=== PATIENT | male | born 1955 | race Caucasian/White ===

== ENCOUNTER → 2018-11-06 13:12 | Outpatient (BNVA) | payer MEDICARE, SELFPAY | PROVIDERS: PCP Internal Medicine; Referring Provider Internal Medicine; Visit Provider Surgery | DX: K40.90 Unilateral inguinal hernia, without obstruction or gangrene, not specified as recurrent (principal) | CPT/HCPCS: 99203 ==

== ENCOUNTER 2018-12-12 06:17 | Day surgery (SDC) | payer OTHER, SELFPAY ==
[2018-12-12] VITALS (7 sets, daily range): BP systolic 111–150; BP diastolic 68–90; PULSE 48–75; RESP 11–16; TEMP 35.8–36.6; O2SAT 98–99
[2018-12-12] MEDS: Lactated Ringers 1,000 ML 30 ML IV (07:03)
[2018-12-12] MEDS: CLINDAMYCIN 900 MG/50 ML BAG 50 MG IVPB (07:37)
--- NOTE | 2018-12-12 09:15 | W.PM.OP ---
Date of service: 12/12/18 Time of Service: 09:15 Operative Note DATE OF PROCEDURE: 12/12/18 PRE-OP DIAGNOSIS: right inguinal hernia POST-OP DIAGNOSIS: other (right incarcerated direct inguinal hernia) PROCEDURE: Open repair of right incarcerated direct inguinal hernia with mesh SURGEON: Christo Goodwin III ASSISTING SURGEON: Risa Lindsay ANESTHESIA: GETA ESTIMATED BLOOD LOSS: 10 PATHOLOGY: none sent COMPLICATIONS: None Patient was transported to: PACU Patient's condition: stable Indications: pain right groin Findings: incarcerated right direct hernia Procedure Description: Patient was seen preoperatively and consent obtained all risks benefits alternatives were discussed the patient in detail. Patient was brought to the operating room and placed in the operating table supine fashion. Patient underwent general anesthesia and endotracheal intubation. A thorough timeout was done with the entire OR staff present. Patient underwent a tap block and ilioinguinal block with anesthesia prior to the surgery starting. Patient had the area prepped and draped in a sterile fashion and Ioban dressing applied. Patient had local anesthesia infiltrated the area adequate anesthesia was achieved a approximately 4 cm incision was made with sharp dissection to the skin down to the subcutaneous tissue patient had meticulous dissection down to the level of the external oblique with Bovie cautery used for hemostasis. At the level of the external oblique a 15 blade was used to incise the fibers of the external oblique along its parallel direction to the inguinal ligament with Metzenbaum scissors and careful dissection to avoid the ilioinguinal nerve a incision was carried from the point of entry to the external ring which was opened. This point the ilioinguinal nerve was identified and isolated the patient had a peanut used to isolate the spermatic cord and its contents from the canal and a Denilson drain was placed around. At this point the hernia was dissected off and there was found a direct component that was incarcerated underneath the cord itself the sac of the direct hernia was dissected out and reduced and the spermatic cord was investigated and dissected out to look for a indirect hernia which was not found. At this point a Marlex large mesh plug was placed in the defect and this was secured to the underside of the pubic tubercle with an interrupted PDS suture. The keyholed Marlex mesh was then applied on top this was circumferentially sutured with PDS suture at the pubic tubercle and circumferentially around with the keyhole incorporating the spermatic cord and its contents the area was copiously irrigated and a closure of the external oblique was then done with a running Vicryl suture the subcutaneous tissue above this was closed with interrupted 2-0 Vicryl sutures and a running Monocryl suture used to close the skin with Dermabond at the skin level. Patient tolerated procedure well was transferred to the PACU and then home upon full recovery from anesthesia patient's was notified of intraoperative findings and procedures. A thorough debridement was done of the entire or staff present.
--- NOTE | 2018-12-12 09:21 | W.PM.DSUDISC ---
Discharge Plan Disposition Patient Disposition: HOME Condition: Stable Discharge Details Reason For Visit: Repair of inguinal hernia Attending Provider: Christo Goodwin III Primary Care Provider: Richard Rosales Home Meds and New Rx's Prescriptions: Continued ibuprofen 800 MG tablet 800 mg PO Q8H PRN RF: 0 calcium carbonate [Caltrate 600] 600 MG tablet 600 mg PO DAILY RF: 0 flaxseed oil 1 cap DAILY RF: 0 glucosamine 1 cap DAILY RF: 0 Discharge Instructions Referrals: Christo Goodwin III, [OSTEOPATHIC DOCTOR] - Activity:: Activity as Tolerated Diet:: As Tolerated DS: Diagnosis Discharge Diagnosis (1) Inguinal hernia of right side with obstruction and without gangrene: Status: Chronic
[2018-12-12] MEDS: Ketorolac 30 MG/ML VIAL IVP (10:12)
[2018-12-12] MEDS: Normal Saline Flush 10 ML SYR IV (10:12)
--- NOTE | 2018-12-12 11:07 | W.PM.DSUDISC ---
Discharge Plan Disposition Patient Disposition: HOME Condition: Stable Discharge Details Reason For Visit: Repair of inguinal hernia Attending Provider: Christo Goodwin III Primary Care Provider: Richard Rosales Home Meds and New Rx's Prescriptions: New acetaminophen 650 mg tablet extended release 650 mg PO Q8H PRN (Reason: fever or pain) Qty: 14 RF: 0 oxycodone 5 mg tablet 5 mg PO Q6H PRN (Reason: pain) Qty: 20 RF: 0 Continued ibuprofen 800 MG tablet 800 mg PO Q8H PRN RF: 0 calcium carbonate [Caltrate 600] 600 MG tablet 600 mg PO DAILY RF: 0 flaxseed oil 1 cap DAILY RF: 0 glucosamine 1 cap DAILY RF: 0 Discharge Instructions Instructions: Inguinal Hernia (GEN) Stand Alone Forms: DSU Post op Instructions, Mickey Urrutia (DSU) Referrals: Christo Goodwin III, DO [OSTEOPATHIC DOCTOR] - Activity:: Activity as Tolerated Diet:: As Tolerated Discharge Orders Discharge Orders: Discharge Order (Routine); Ordered 12/12/18 Ordered By: Christo Goodwin III DS: Diagnosis Discharge Diagnosis (1) Inguinal hernia of right side with obstruction and without gangrene: Start date: 12/12/18 Start time: 11:07 Status: Chronic
== END 2018-12-12 11:36 | disposition home or self-care (01) ==
PROVIDERS: PCP Internal Medicine; Visit Provider Surgery
PROC: (CPT 49505; principal; 2018-12-12 07:30)
DX: K40.30 Unilateral inguinal hernia, with obstruction, without gangrene, not specified as recurrent (principal); K21.9 Gastro-esophageal reflux disease without esophagitis
CPT/HCPCS: 49505; 76942; C1781; J0131; J1100; J1885; J2001; J2250; J2405; J3010

== ENCOUNTER → 2018-12-19 13:49 | Outpatient (BNVA) | payer MEDICARE, SELFPAY | PROVIDERS: PCP Internal Medicine; Referring Provider Internal Medicine; Visit Provider Surgery | DX: Z48.89 Encounter for other specified surgical aftercare (principal); K40.90 Unilateral inguinal hernia, without obstruction or gangrene, not specified as recurrent ==

== ENCOUNTER 2019-12-04 09:28 | Outpatient (REF) | payer OTHER, SELFPAY ==
[2019-12-04 19:30] LABS: Abs Immature Grans 0.01 k/cumm (0.0-0.09); Absolute Basophil Count 0.01 k/cumm (0.0-0.2); Absolute Eosinophil Count 0.15 k/cumm (0.0-0.7); Absolute Lymphocyte Count 1.41 k/cumm (1.2-3.4); Absolute Monocyte Count 0.54 k/cumm (0.11-0.7); Absolute Neutrophil Count 4.36 k/cumm (1.2-6.7); Basophils % 0.2; Eosinophils % 2.3; HCT 44.5 % (40.0-50.0); HGB 15.2 g/dL (13.5-17.5); Immature Grans % 0.2 %; Lymphocytes % 21.8; Mean Corp. HGB Concentration 34.2 g/dL (32.0-36.0); Mean Corpuscular Hemoglobin 35.4 pg (27.0-33.0); Mean Corpuscular Volume 103.7 fL (80-95); Mean Platelet Volume 10.4 fL (8.0-11.0); Monocytes % 8.3; Neutrophils % 67.2; Platelet Count 214 x1000/uL (130-400); RBC 4.29 m/cumm (4.50-6.00); RBC Distribution Width 11.5 % (11.8-14.1); White Blood Cell Count 6.48 k/cumm (4.4-10.8)
[2019-12-04 19:51] LABS: ALT 31 U/L (16-63); AST 18 U/L (15-37); Albumin 3.9 g/dL (3.4-5.0); Alkaline Phosphatase 112 U/L (46-116); Anion Gap 10.5 mmol/L (3-11); BUN 14 mg/dL (7-18); Bilirubin, Total 0.4 mg/dL (0.2-1.0); CO2 25.5 mmol/L (21.0-32.0); CREATININE 0.99 mg/dL (0.70-1.30); Calcium 8.7 mg/dL (8.5-10.1); Calculated LDL 121 mg/dL; Chloride 106 mmol/L (98-107); Cholesterol 193 mg/dL (<200); Glucose 115 mg/dL (74-106); HDL Cholesterol 52 mg/dL (40-60); Potassium 4.2 mmol/L (3.5-5.1); Sodium 142 mmol/L (136-145); Total Protein 6.7 g/dL (6.4-8.2); Triglyceride 101 mg/dL (<150)
== END 2019-12-04 09:48 ==
LOC: NCHCN 09:28
PROVIDERS: PCP Internal Medicine; Visit Provider Physician Assistant
DX: R73.9 Hyperglycemia, unspecified (principal); K21.9 Gastro-esophageal reflux disease without esophagitis; D75.89 Other specified diseases of blood and blood-forming organs
CPT/HCPCS: 80053; 80061; 85025

== ENCOUNTER 2019-12-26 10:03 | Outpatient (CLI) | payer OTHER, SELFPAY ==
--- NOTE | 2019-12-26 | DI.RAD_ITS ---
EXAM: XR SHOULDER LT COMPLETE 2+V INDICATION: Pain left shoulder. COMPARISON: XR SHOULDER MIN 2V LT from 12/04/2019 from [facility]. TECHNIQUE: 2D digital imaging was performed. FINDINGS: The glenohumeral joint is well maintained. There is mild spurring at the glenoid. Spurring is seen at the tip of the acromion and greater and lesser tuberosities. Humeral head appears normally positione d. Old left rib fractures are seen. IMPRESSION: Stable mild to moderate degenerative changes.
== END 2019-12-26 10:23 ==
PROVIDERS: PCP Internal Medicine; Referring Provider Physician Assistant; Visit Provider Student in an Organized Health Care Education/Training Program
DX: M75.102 Unspecified rotator cuff tear or rupture of left shoulder, not specified as traumatic; M75.52 Bursitis of left shoulder
CPT/HCPCS: 99204; 99215; 73030

== ENCOUNTER 2023-04-21 10:58 | Outpatient (REF) | payer MEDICARE, SELFPAY ==
[2023-04-21 18:56] LABS: HCT 47.9 % (40.0-50.0); HGB 16.8 g/dL (13.5-17.5); MCH 37.3 pg (27.0-33.0); MCHC 35.1 % (32.0-36.0); MPV 10.9 fL (8.0-11.0); Platelet Count 173 10^3/uL (130-400); RBC 4.51 10^6/uL (4.36-5.78); RDW-SD 47.5 fL; WBC 4.97 10^3/uL (4.4-10.8)
[2023-04-21 19:09] LABS: MCV 106 fL (80-95)
[2023-04-21 19:14] LABS: ALT 41 U/L (16-63); AST 30 U/L (15-37); Albumin 4.2 g/dL (3.4-5.0); Alkaline Phosphatase 117 U/L (46-116); Anion Gap 8.2 mmol/L (3-11); BUN 11 mg/dL (7-18); Bilirubin, Total 0.6 mg/dL (0.2-1.0); CO2 24.8 mmol/L (21.0-32.0); Calcium 9.1 mg/dL (8.5-10.1); Chloride 107 mmol/L (98-107); Estimated GFR 81.98 (mL/min/1.73m2); Glucose 152 mg/dL (74-106); Potassium 4.3 mmol/L (3.5-5.1); Sodium 140 mmol/L (136-145); Total Protein 7.7 g/dL (6.4-8.2)
[2023-04-21 19:17] LABS: Hemoglobin A1C 5.3 % (<5.7)
== END 2023-04-21 10:59 | disposition home or self-care (01) ==
LOC: NCHCN 10:58
PROVIDERS: PCP Internal Medicine; Visit Provider Physician Assistant
DX: D75.89 Other specified diseases of blood and blood-forming organs (principal); K21.9 Gastro-esophageal reflux disease without esophagitis; F10.10 Alcohol abuse, uncomplicated; E66.9 Obesity, unspecified; R73.09 Other abnormal glucose
CPT/HCPCS: 80053; 85027; 83036

== ENCOUNTER 2024-05-11 09:24 | Outpatient (REF) | payer MEDICARE, SELFPAY ==
[2024-05-11 19:23] LABS: ALT 35 U/L (16-63); AST 26 U/L (15-37); Alkaline Phosphatase 108 U/L (46-116); Anion Gap 6.1 mmol/L (3-11); BUN 11 mg/dL (7-18); Bilirubin, Total 0.5 mg/dL (0.2-1.0); CO2 27.9 mmol/L (21.0-32.0); CREATININE 1.1 mg/dL (0.70-1.30); Calculated LDL 113 mg/dL (<100); Chloride 103 mmol/L (98-107); Cholesterol 194 mg/dL (<200); Estimated GFR 72.22 (mL/min/1.73m2); Glucose 127 mg/dL (74-106); HDL Cholesterol 55 mg/dL (40-60); Potassium 4.2 mmol/L (3.5-5.1); Sodium 137 mmol/L (136-145); Total Protein 7.4 g/dL (6.4-8.2); Triglyceride 130 mg/dL (<150)
[2024-05-14 11:07] LABS: Hepatitis C Ab w Rflx HCV PCR Negative (Negative)
== END 2024-05-11 09:25 | disposition home or self-care (01) ==
LOC: NCHCN 09:24
PROVIDERS: PCP Internal Medicine; Visit Provider Physician Assistant
DX: Z13.6 Encounter for screening for cardiovascular disorders (principal); Z12.5 Encounter for screening for malignant neoplasm of prostate; Z11.59 Encounter for screening for other viral diseases
CPT/HCPCS: 80053; 80061; 84153; 86803

== ENCOUNTER 2025-05-10 12:24 | Outpatient (REF) | payer MEDICARE, SELFPAY ==
[2025-05-10 19:42] LABS: Abs Immature Grans 0.03 10^3/uL (0.0-0.06); Absolute Basophil Count 0.04 10^3/uL (0.0-0.2); Absolute Eosinophil Count 0.12 10^3/uL (0.0-0.7); Absolute Lymphocyte Count 1.64 10^3/uL (1.2-3.4); Absolute Neutrophil Count 4.09 10^3/uL (1.2-6.7); Basophils % 0.6 %; Eosinophils % 1.8 %; HCT 41.1 % (40.0-50.0); HGB 14.1 g/dL (13.5-17.5); Immature Grans % 0.5 %; Lymphocytes % 24.8 %; MCH 34.8 pg (27.0-33.0); MCHC 34.3 % (32.0-36.0); MCV 102 fL (80-95); MPV 9.9 fL (8.0-11.0); Monocytes % 10.6 %; Neutrophils % 61.7 %; Platelet Count 233 10^3/uL (130-400); RBC 4.05 10^6/uL (4.36-5.78); RDW 11.9 % (11.8-14.1); RDW-SD 43.8 fL; WBC 6.62 10^3/uL (4.4-10.8)
[2025-05-10 20:00] LABS: ALT 40 U/L (16-63); AST 27 U/L (15-37); Albumin 3.6 g/dL (3.4-5.0); Alkaline Phosphatase 92 U/L (46-116); Anion Gap 7.1 mmol/L (3-11); BUN 9 mg/dL (7-18); Bilirubin, Total 0.4 mg/dL (0.2-1.0); CO2 29.9 mmol/L (21.0-32.0); CREATININE 1.1 mg/dL (0.70-1.30); Calcium 8.7 mg/dL (8.5-10.1); Chloride 104 mmol/L (98-107); Estimated GFR 71.77 (mL/min/1.73m2); Glucose 114 mg/dL (74-106); Potassium 3.9 mmol/L (3.5-5.1); Sodium 141 mmol/L (136-145); Total Protein 6.8 g/dL (6.4-8.2)
== END 2025-05-10 12:25 | disposition home or self-care (01) ==
LOC: NCHCN 12:24
PROVIDERS: PCP Internal Medicine; Visit Provider Physician Assistant
DX: R19.7 Diarrhea, unspecified (principal)
CPT/HCPCS: 80053; 85025

== ENCOUNTER → 2025-06-12 11:22 | Outpatient (BNVA) | payer MEDICARE, SELFPAY | PROVIDERS: PCP Internal Medicine; Referring Provider Internal Medicine; Visit Provider Physical Therapy Assistant | DX: Z12.11 Encounter for screening for malignant neoplasm of colon (principal) | CPT/HCPCS: S0285 ==

== ENCOUNTER 2025-06-20 07:40 | Day surgery (SDC) | payer MEDICARE, SELFPAY ==
[2025-06-20 08:05] VITALS: BP 145/92; PULSE 71; RESP 16; TEMP 36; O2SAT 99
[2025-06-20] MEDS: Lactated Ringers 1,000 ML 80 ML IV (08:20)
--- NOTE | 2025-06-20 08:26 | ANES.PREOP_ITS ---
General Info Date of Service Date Performed: 06/20/25 Height: 5 ft 9 in Weight: 92 kg Body Mass Index (BMI): 29.9 Surgical Procedure: Operation Date: 06/20/25 09:35 Proposed Procedure Side Surgeon p Colonoscopy Jerri Degroot MD Actual Procedure Side Surgeon p Colonoscopy Jerri Degroot MD Pre-Op Diagnosis Post-Op Diagnosis screening colonoscopy Meds Allergies and Home Medications Allergies Allergy/AdvReac Type Severity Reaction Status Date / Time Penicillins Allergy rash Verified 06/20/25 08:03 Home Medication ?Medication ?Instructions ?Recorded calcium carbonate (Caltrate 600) 600 mg PO DAILY 03/10 ibuprofen 800 mg tablet 800 mg PO Q8H PRN 03/10/15 acetaminophen 650 mg 650 mg PO Q8H PRN fever or p ain 12/12/18 tablet,extended release #14 tabs bisacodyl 5 mg tablet,delayed 5 mg PO ONCE #4 tabs release (Dulcolax (bisacodyl)) polyethylene glycol 3350 17 17 g PO ONCE #238 grams gram/dose oral powder multivitamin 1 tab PO DAILY 06/19/25 Current Visit Medications: Current Medications Generic Name Dose Route Start Last Admin Trade Name Freq PRN Reason Stop Dose Admin Ringer's Solution 1,000 mls @ 80 mls/hr 06/20/25 06:00 06/20/25 08:20 IV 06/20/25 23:59 80 mls/hr INFUSION ANA Administration IV Miscellaneous Supplies 1 each 06/20/25 06:00 Iv Access IV 06/20/25 23:59 DIRECTED ANA Sodium Biphosphate/Sodium Phosphate 133 ml 06/20/25 06:00 Na Phosphate Enema-Adult 133 Ml Btl DC 06/20/25 23:59 DIRECTED PRN Sodium Chloride 0 ml 06/20/25 06:00 Normal Saline Flush 10 Ml Syr IV 06/20/25 23:59 PRN PRN Sodium Chloride 0 ml 06/20/25 06:00 Normal Saline 10 Ml Vial IJ 06/20/25 23:59 DIRECTED PRN Sterile Water 0 ml 06/20/25 06:00 Water,Injection,Sterile 10 Ml Vial IJ 06/20/25 23:59 DIRECTED PRN PFSH Active Problems Active Problems: Problem Status Onset Code Bursitis of left shoulder Acute M75.52 Biceps tendonitis Acute M75.20 Acromioclavicular joint separation, type 1 Acute S43.109A Left rotator cuff tear Acute M75.102 Inguinal hernia of right side with obstruction and without gangrene Chronic K40.30 Marijuana use Chronic F12.90 Reactive airway disease Chronic J45.909 Right inguinal hernia Acute K40.90 Medical History Medical History Lumbago Chronic rhinitis Surgical History Surgical History History of herniorrhaphy (12/12/18) right inguinal, Dr. Christo Goodwin, [facility] H/O repair of right rotator cuff History of total hip replacement revised, right hip Tobacco Smoking/Tobacco Use Status: Former Tobacco Use Alcohol Alcohol Intake: current Alcohol intake frequency: a few times a month Alcohol type: beer Substance Use Substance use: Daily Substance use type: marijuana Details: Smoked around 0700 on 06/20/25 Vital Signs and Lab Results Vital Signs Most Recent Vital Signs in EMR: Most Recent Vital Signs Temp Pulse Resp BP Pulse Ox 36.0 C L 71 16 145/92 H 99 06/20/25 08:05 06/20/25 08:05 06/20/25 08:05 06/20/25 08:05 06/20/25 08:05 Anesthesia Assessment and Plan Anesthesia History Personal History: No History of Anesthesia Complications Family History: No Family History of Anesthesia Complications Exercise Tolerance Exercise Tolerance: Metabolic Equivalents>4 Pertinent Negatives Pertinent Negatives: No Symptoms of GERD, No Major Cardiovascular Symptoms or Complaints and No History of CVA/TIA Cardiac & Pulmonary Exam Cardiac Exam: Normal S1/S2 Heart Sounds Pulmonary Exam: Clear Bilateral Breath Sounds Implantable Cardiac Device Does patient have a Pacemaker or an ICD?: No Airway Exam Known Difficult Airway: No Mallampati Class: 2 Mouth Opening: Normal (> 3cm) Thyromental Distance: Greater than 3 cm Neck Range of Motion: Full ROM Neck Circumference: Normal Teeth Condition: Removable Dentures/Plates Upper and Removable Dentures/Plates Lower ASA Classification ASA Score: ASA 2 Emergency Case?: No NPO Status NPO Status: NPO Clears >2 hours, Solids >8 hours Anesthesia Plan Resuscitation Status: Full Code Anesthesia Technique: General Anesthesia Airway Planned: Natural Airway Monitors Used: Standard Monitors
[2025-06-20 08:28] VITALS: BMI 29.9
--- NOTE | 2025-06-20 09:08 | BOWEL_PTH ---
PATIENT: Erik Gan LOC: [facility] U#:[id number] AGE/SX: 70/M ROOM: RE06/20/[address]: Jerri Degroot MD : [id number] BED: DIS: 06/20/2025 SPEC #: [id number] RECD: 06/20/25 13:01 STATUS: NATHANIEL REMichele #: [id number] IRIS: 06/20/25 09:[address]: Jerri Degroot DEPT: Surgical Specimen RECD BY: Sarina Beltran ENTERED: 06/20/25 13:03 SP TYPE: Bowel OTHR DR: Richard Rosales Tissues: 1 - BIOPSY BOWEL Procedures: GROSS AND MICRO LEVEL 4 Comments: [id number]
[2025-06-20 09:15] VITALS: BP 122/75; PULSE 66; RESP 18; TEMP 36.2; O2SAT 95
--- NOTE | 2025-06-20 09:25 | W.COLOREPORT ---
Date of service: 06/20/25 Time of Service: 09:25 Colonoscopy Report Date of procedure: 06/20/25 Pre-op diagnosis general: screening for colorectal cancer Post-op diagnosis procedure note: same (rectum polyp, sigmoid diverticulosis) Surgeon: Jerri Degroot Anesthesia Type: MAC Estimated blood loss (mL): 1 Pathology: other (rectum polyp) Complications: None Indications: screening for colorectal cancer Prep: Miralax/Dulcolax Procedure Description: Consent obtained Time out performed Patient positioned in left lateral decubitus position Flexible colonoscopy inserted through the anus into the rectum and advanced to the cecum cecum identified by appendiceal orifice endoscope withdrawn and mucosa examined. Ascending, transverse, descending colon examined. Rectum examined. Endoscope retroflexed and the anal verge examined. Sigmoid diverticulosis noted, small and large mouthed diverticula, moderate. No evidence of diverticulitis. Rectum polyp 3mm sessile excised with cold forcep. Grade 1 internal hemorrhoids without complication. ASSESSMENT AND PLAN: rectum polyp seen and excised. Timing of next colonoscopy pending path of polyp. 10 years if hyperplastic, 5 years if adenoma. high fiber diet for diverticulosis.
--- NOTE | 2025-06-20 09:28 | W.PM.DSUDISC ---
Date of service: 06/20/25 Discharge Plan Disposition Patient Disposition: Home Condition: Stable Discharge Details Attending Provider: Jerri Degroot Primary Care Provider: Richard Rosales Home Meds and New Rx's Prescriptions: Discontinued bisacodyl [Dulcolax (bisacodyl)] 5 mg tablet,delayed release (DR/EC) 5 mg PO ONCE Qty: 4 0RF Rx Instructions: Take per colonoscopy instructions provided by ordering providers office polyethylene glycol 3350 17 gram/dose powder 17 g PO ONCE Qty: 238 0RF Rx Instructions: Take per colonoscopy instructions provided by ordering providers office No Action ibuprofen 800 MG tablet 800 mg PO Q8H PRN calcium carbonate [Caltrate 600] 600 MG tablet 600 mg PO DAILY acetaminophen 650 mg tablet extended release 650 mg PO Q8H PRN (Reason: fever or pain) Qty: 14 0RF multivitamin Tablet 1 tab PO DAILY Discharge Instructions Instructions: Colon polyps, Colon Polypectomy, Diverticulosis (DC), Colonoscopy, High-fiber diet Additional Instructions: one tiny rectum polyp seen and removed today. Timing of next colonoscopy will depend on biopsy of the polyp. It will be due in 10 years if its a hyperplastic polyp, or due in 5 years if adenoma polyp. I will send you a letter to notify you when those results are available. high fiber diet recommended for diverticulosis. Stand Alone Forms: Anesthesia Discharge InstAnne Marie, Mickey Urrutia (DSU) Activity:: Activity as Tolerated Diet:: As Tolerated DS: Diagnosis Discharge Diagnosis (1) Screening for colorectal cancer: Status: Acute (2) Rectal polyp: Status: Acute (3) Diverticulosis, sigmoid: Status: Acute
[2025-06-20 09:42] VITALS: BP 121/72; PULSE 58; RESP 16; TEMP 36; O2SAT 97
--- NOTE | 2025-06-20 10:54 | W.ANESPOSTOP ---
Postoperative Evaluation Date, Time and Location Date Performed: 06/20/25 Time Performed: 10:02 Patient Location: Day Surgery Unit Vital Signs Most Recent Imported Vital Signs: Most Recent Vital Signs Temp Pulse Resp BP Pulse Ox 36 C L 58 L 16 121/72 97 06/20/25 09:42 06/20/25 09:42 06/20/25 09:42 06/20/25 09:42 06/20/25 09:42 Pain Score Most Recent Pain Score: Most Recent Pain Score Pain Level 0 06/20/25 09:42 Assessment Mental Status: Awake (Alert & Oriented to Patient Baseline) Airway and Respiratory Function: Patent airway with normal (patient baseline) respiratory exam Cardiovascular Function: Hemodynamically Stable Hydration Status: Adequately Hydrated Nausea & Vomiting: No Nausea or Vomiting Pain: Pt. Denies Any Pain Peripheral Nerve Block: Patient did not receive a nerve block
== END 2025-06-20 10:12 | disposition home or self-care (01) ==
PROVIDERS: PCP Internal Medicine; Visit Provider Surgery
PROC: 0DJD8ZZ Inspection of Lower Intestinal Tract, Via Natural or Artificial Opening Endoscopic (ICD-10-PCS; CPT 45378; principal; 2025-06-20 09:30)
DX: Z12.11 Encounter for screening for malignant neoplasm of colon (principal); K57.30 Diverticulosis of large intestine without perforation or abscess without bleeding; K62.1 Rectal polyp
CPT/HCPCS: 45380; 88305; J2704